=== PATIENT | male | born 1975 | race Caucasian/White ===

== ENCOUNTER 2022-07-23 20:22 | Emergency (ER) | payer OTHER, SELFPAY ==
--- NOTE | ~2022-07-23 | XR_ITS ---
XR forearm LT 2V DATE: 07/23/2022 21:04 INDICATION: Fall today. Elbow and proximal forearm pain. TECHNIQUE: Multiple views COMPARISON: None FINDINGS: No fracture or dislocation, periosteal reaction or bone destruction. IMPRESSION: Negative Reviewed, dictated and finalized at location A. [employer]OTTOM [employer]IVER IMPRESSION: Negative
--- NOTE | ~2022-07-23 | XR_ITS ---
XR elbow LT min 3V DATE: 07/23/2022 22:03 INDICATION: Fall today. Pain all around elbow. TECHNIQUE: 3 views COMPARISON: None FINDINGS: There is prominent elevation of the anterior and posterior fat pads, consistent with large elbow joint effusion. No fracture or dislocation is detected. IMPRESSION: Large elbow joint effusion; recommend follow up left elbow radiographs to evaluate for po ssible occult fracture Reviewed, dictated and finalized at location A. 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
--- NOTE | ~2022-07-23 | XR_ITS ---
XR_[id number] DATE: 07/23/2022 22:03 INDICATION: Upper left lateral rib pain following fall today TECHNIQUE: PA chest. 3 views of left ribs. COMPARISON: None FINDINGS: Normal heart size. No hilar or mediastinal enlargement. No pulmonary infiltrate or consol idation, pulmonary vascular congestion or pleural effusion or pneumothorax. No left rib fracture is detected. IMPRESSION: Negative Reviewed, dictated and finalized at Location [facility]. Reviewed, dictated and finalized at location A. CER LIEUTENANT IMPRESSION: Negative
[2022-07-23 20:31] VITALS: BP 146/93; PULSE 92; RESP 13; TEMP 36.7; O2SAT 99
[2022-07-23] MEDS: ONDANSETRON HCL ODT 4 MG TABLET PO (22:01)
[2022-07-23] MEDS: HYDROmorphone HCL INJ (*CRX) 1 MG/ML SYR IM (22:01)
--- NOTE | 2022-07-23 23:33 | ED.UPPEXIN ---
HPI - Extremity Injury (Upper) General Chief Complaint: Extremity Injury, Upper Stated Complaint: left arm injury Time Seen by Provider: 07/23/22 21:17 Source: patient and RN notes reviewed Mode of arrival: ambulatory Limitations: no limitations History of Present Illness HPI narrative: This is a 46 year old male who presents for evaluation of left elbow pain. Patient states he accidentally fell backwards onto his left elbow. He states he is unable to move at left elbow without significant pain. He denies hitting his head or LOC. He reports mild left rib pain, but he states that he does not think he broke any ribs. He denies sob. He denies numbness or tingling. Related Data Allergies Allergy/AdvReac Type Severity Reaction Status Date / Time No Known Allergies Allergy Verified 07/23/22 23:48 Review of Systems Review of Systems: All systems reviewed & are unremarkable except as noted in HPI and below Constitutional: Constitutional: Denies weakness Cardiovascular: Cardiovascular: Denies syncope, Denies rapid heart rate, Denies irregular heart rhythm, Denies leg edema and Denies dyspnea Respiratory: Respiratory: Denies chest congestion, Denies hemoptysis, Denies excessive phlegm production and Denies dyspnea Gastrointestinal: Gastrointestinal: Denies abdominal pain, Denies hematochezia, Denies diarrhea and Denies vomiting Genitourinary: Genitourinary: Denies hematuria, Denies dysuria, Denies penile discharge and Denies testicular pain Musculoskeletal: Musculoskeletal: Reports arthralgias, Reports joint swelling, Denies loss of height and Denies muscle weakness Neurologic: Denies syncope, Denies focal weakness and Denies weakness PMFSH Past Medical History Medical History (Updated 07/23/22 @ 23:48 by Radha Hassan MD) No significant medical problems Surgical History Surgical History (Updated 07/23/22 @ 23:45 by Radha Hassan MD) History of surgery on lower extremity Exam Const: General: no acute distress and alert Nutritional Appearance: well nourished Orientation/consciousness: patient oriented x3 Limitations: no limitations HENMT: Head: normal to inspection Face and sinus: normal facial exam Eyes: EOM: EOMs intact bilaterally Neck: Neck: normal visual inspection Chest: Chest palpation & inspection: normal inspection of the chest Resp: Effort & Inspection: normal respiratory effort Auscultation: clear to auscultation bilaterally Cardio: Rate: regular rate Rhythm: regular rhythm GI: GI Palp: Yes Soft to palpation, No Tenderness to palpation present (GI) and No Guarding due to palpation present (GI) Auscultation: normal bowel sounds Skin: General skin exam: normal color Rashes: no rashes Wounds: no wounds Neuro: General: patient oriented x3, moves all extremities and CN's II-XI intact bilaterally Cranial nerves: Yes Nystagmus not present Speech: normal speech Extrem: Other: left elbow tenderness, no significant swelling. He has pain with range of motion at elbow; strong palpable radial pulse present, able to move fingers, wrist and shoulder with out pain at those area Psych: Mental Status: mental status grossly normal Affect: normal affect Attitude: cooperative Course Reevaluation(s) Reevaluation #1: I discussed with patient that elbow xray shows effusion to suggest he has occult radial head fracture. I explained that he will be placed in splint with sling and that he will need to follow up orthopedic surgeon, he is right hand dominant. Date: 07/23/22 Time: 23:46 Vital Signs Vital signs: Vital Signs Temperature 98.1 F 07/23/22 20:31 Pulse Rate 92 07/23/22 20:31 Respiratory Rate 13 07/23/22 20:31 Blood Pressure 146/93 H 07/23/22 20:31 Pulse Oximetry 99 07/23/22 20:31 Temperature 98.1 F 07/23/22 20:31 Pulse Rate 72 07/24/22 00:17 Respiratory Rate 18 07/24/22 00:17 Blood Pressure 141/86 H 07/24/22 00:17 Pulse Oximetry 99 07/24/22 00
[2022-07-24 00:17] VITALS: BP 141/86; PULSE 72; RESP 18; O2SAT 99
== END 2022-07-24 00:18 | disposition home or self-care (01) ==
PROVIDERS: Emergency Provider General Practice
DX: M25.422 Effusion, left elbow (principal); W01.0XXA Fall on same level from slipping, tripping and stumbling without subsequent striking against object, initial encounter
CPT/HCPCS: 29105; 71101; 73080; 73090; 96372; 99284; A4565; A9270; J1170

== ENCOUNTER 2023-05-06 12:45 | Emergency (ER) | payer OTHER, SELFPAY ==
--- NOTE | ~2023-05-06 | CT_ITS ---
EXAMINATION: CT facial bones wo con DATE: 05/06/2023 15:02 INDICATION: Left eye injury TECHNIQUE: Computed tomography (CT) of the facial bones was performed without intravenous contrast. T he dose-length product was 314.65 mGy-cm. Automated exposure control and iterative reconstruction sky hnique were employed. COMPARISON: None FINDINGS: There are age-indeterminate bilateral nasal fractures. Leftward nasal septal deviation. The re is mucosal thickening of the frontal, ethmoid sinuses. Mastoids are pneumatized. Ostiomeatal units are patent. There is a right-sided becky bullosa. Mandible intact. Temporomandibular joints are sym metric. Visualized aspects of the cervical spine are unremarkable. No orbital fracture is seen. Ptery goid plates are unremarkable. There is an old healed right zygomatic arch fracture. IMPRESSION: 1. No acute orbital fracture. 2: Age-indeterminate bilateral nasal fractures. Old healed right zygomatic arch fracture. Reviewed, dictated and finalized at location B. IMPRESSION: 1. No acute orbital fracture. 2: Age-indeterminate bilateral nasal fractures. Old healed right zygomatic arc h fracture.
[2023-05-06 13:04] VITALS: BP 153/108; PULSE 99; RESP 19; TEMP 36.7; O2SAT 100
--- NOTE | 2023-05-06 14:46 | ED.HEATRA ---
HPI - Head Injury General Chief complaint: Head Injury Stated complaint: broom stick hit patient in face Time Seen by Provider: 05/06/23 14:18 Source: patient Mode of arrival: ambulatory Limitations: no limitations History of Present Illness HPI Narrative: This is a 47 year old male that presents to the ER for left eye injury sustained just prior to arrival. Reports he was at [employer] and someone stepped on the end of a shovel and the stick came up and hit him in the eye. Reports pain and decreased vision. Reports he wears reading glasses. Denies vomiting. Related Data Allergies Allergy/AdvReac Type Severity Reaction Status Date / Time No Known Allergies Allergy Verified 05/06/23 12:46 Review of Systems Review of Systems: CONSTITUTIONAL: Denies fever EYES: Reports visual changes, redness. Denies discharge All systems reviewed & are unremarkable except as noted in HPI and below PMFSH Past Medical History Medical History (Updated 05/06/23 @ 16:27 by Treasure Jamison PA-C) No significant medical problems Surgical History Surgical History (Updated 07/23/22 @ 23:45 by Radha Hassan MD) History of surgery on lower extremity Social History Social History (Updated 05/06/23 @ 14:51 by Treasure Jamison PA-C) Substance use: never Exam Narrative: GENERAL: Well-appearing, well-nourished, and in no acute distress. HEAD: Normocephalic. Bruising noted below the left eye EYES: PERRLA. Right EOMI. Left eye with mild conjunctival injection. Eyelid everted, no foreign bodies noted. Visual acuity 20/200 right eye. Unable to visualize big E in the left eye EXTREMITIES: Normal range of motion. No edema. SKIN: Warm, dry, no rash. NEURO: No focal deficits. Alert and oriented x3. PSYCH: Normal mood and affect Course Course Emergency Course: Patient instructed to go directly to [facility] ER for further evaluation by ophthalmology Consultations Consultation #1: Spoke with Dr. Guerra, ophthalmology, about patient and workup who recommends transfer to the ER for further evaluation. Dr. Walker, accepts transfer Date: 05/06/23 Vital Signs Vital signs: Vital Signs Temperature 98.1 F 05/06/23 13:04 Pulse Rate 99 05/06/23 13:04 Respiratory Rate 19 05/06/23 13:04 Blood Pressure 153/108 H 05/06/23 13:04 Pulse Oximetry 100 05/06/23 13:04 Oxygen Delivery Room Air 05/06/23 13:04 Temperature 98.1 F 05/06/23 13:04 Pulse Rate 99 05/06/23 13:04 Respiratory Rate 19 05/06/23 13:04 Blood Pressure 153/108 H 05/06/23 13:04 Pulse Oximetry 100 05/06/23 13:04 Oxygen Delivery Room Air 05/06/23 13:04 MDM - Head Injury MDM Narrative Medical decision making narrative: Patient presents to the emergency department for an injury to the left eye. Patient with markedly decreased vision in the affected eye, as well as his unaffected eye. His eye pressures are normal at 9 bilaterally. Mild conjunctival injection on exam. There are no foreign bodies or corneal abrasions noted. CT scan of his facial bones without acute orbital fracture. Spoke with Dr. Guerra, ophthalmology, about patient and workup who recommends transfer to the ER for further evaluation. Dr. Walker, accepts transfer. Patient instructed to go directly to [facility] ER for further evaluation by ophthalmology Differential Diagnosis Differential diagnosis: Likely closed head injury and other (Foreign body eye, corneal abrasion, retinal trauma, orbital fracture) Imaging Data Radiologist's impression: ITS Impressions Face CT 05/06/23 15:07 IMPRESSION: 1. No acute orbital fracture. 2: Age-indeterminate bilateral nasal fractures. Old healed right zygomatic arch fracture. Critical Care Time Critical Care Time Critical Care Time: No Discharge Plan Discharge Clinical Impression: Decreased visual acuity Blunt injury, left eye Qualifiers: Encounter type: initial encounter Qualified Code(s): S05.8X2A - Other injuri
[2023-05-06] MEDS: TETRACAINE HCL 0.5% OPHTH SOLN 4 ML BTL 1 DROP (15:07)
[2023-05-06] MEDS: FLUORESCEIN SOD 1 MG/STRIP (15:07)
--- NOTE | 2023-05-06 16:44 | PC.NURSE ---
report called to Ashu MURILLO at [facility] ER. no questions at time of report.
== END 2023-05-06 16:45 | disposition short-term general hospital (02) ==
PROVIDERS: Emergency Provider Physician Assistant
DX: S05.8X2A Other injuries of left eye and orbit, initial encounter (principal); W22.8XXA Striking against or struck by other objects, initial encounter
CPT/HCPCS: 70486; 99284; A9270